=== PATIENT | female | born 2000 | race Caucasian/White ===

== ENCOUNTER 2024-02-29 20:10 | Emergency (ER) | payer OTHER ==
[~2024-02-29] VITALS: Ht 175.3 cm; Wt 145.1 kg
[2024-03-01 00:05] VITALS: BP 133/74; TEMP 98.3; O2SAT 99
== END 2024-03-01 00:05 | disposition home or self-care (01) ==
LOC: ER 20:15
DX: S93.492A Sprain of other ligament of left ankle, initial encounter (principal); Z60.2 Problems related to living alone; W17.89XA Other fall from one level to another, initial encounter; Y93.89 Activity, other specified; Y92.89 Other specified places as the place of occurrence of the external cause; Y99.8 Other external cause status
CPT/HCPCS: 73610-TC; 73650-TC